=== PATIENT | male | born 1955 | race Caucasian/White ===

== ENCOUNTER 2016-09-18 14:47 | Emergency (ER) | payer MEDICARE, OTHER ==
[~2016-09-18] VITALS: Ht 167.6 cm; Wt 74.1 kg
[~2016-09-18 14:47] MED LIST: BP MED; FLUT1DIS5 IH; IBUP800T28 PO; LISI10TA2 PO
[2016-09-18 14:53] VITALS: BP 110/77; PULSE 124; RESP 36; O2SAT 96
--- NOTE | 2016-09-18 15:10 | ED.REPORT ---
HPI-Dyspnea / Wheezing Date of Service Sep 18, 2016 ED Provider: Leoncio Perla MD Patient is a 61 year old male who presents to the ED complaining of shortness of breath onset earlier this morning. He denies nausea, vomiting or chest pain. The patient reports that he has not been taking his medication or inhaler for the past month and has been using meth. Patient last used meth 4 days ago. He states that he would like to be started on his medication again. Nursing Notes Stated Complaint: SHORT OF BREATH-COPD Chief Complaint: Respiratory Distress Nursing Notes Reviewed: Yes Allergies: Coded Allergies: No Known Allergies (Verified Allergy, Unknown, 09/18/16) Scheduled Albuterol HFA (Proair HFA) 8.5 Gm Hfa.aer.ad 2-4 PUFFS INHALATION Q2H Fluticasone/Salmeterol (Advair 500-50 Diskus) 1 Each Disk.w.dev 1 PUFF IH BID Lisinopril (Lisinopril) 10 Mg Tablet 10 MG PO DAILY Prednisone (Deltasone) 20 Mg Tablet 40 MG PO DAILY Scheduled PRN Ibuprofen (Ibuprofen) 800 Mg Tablet 800 MG PO QID PRN PRN For Pain Miscellaneous Medications ([Bp Med]) General Time Seen by MD: 15:09 Chief Complaint Shortness of breath Hx Obtained From: Patient Arrived By: Walk-in Sudden in Onset?: Yes Onset Occurred: 1 - 4 hours ago Symptom Duration: Since onset Location: : None Severity: Current: No pain currently Recent Healthcare: No recent hospitalization, Recent doctor visit Similar Sx Previous: Yes Past Medical History Past Medical History Reports: COPD, Hypertension Smoking History Former Smoker Social History Drug Use: Meth Ambulatory Status Independent Review of Systems Constitutional: Denies: Chills, Fever Respiratory: Reports: Non-productive cough, Shortness of breath Cardiovascular: Denies: Chest pain Skin: Denies Itching, Denies Rash Complete sys rev & neg: except as marked. GI: Denies: Nausea, Vomiting Physical Exam Initial Vital Signs Vital Signs (First) Date Time Temp Pulse Resp B/P Pulse Ox O2 Delivery O2 Flow Rate FiO2 09/18/16 14:53 37.1 124 36 110/77 96 09/18/16 17:33 Room Air Initial VS: Reviewed General/Constitutional: Awake, Alert missing most of his teeth Neck: Atraumatic, Supple Respiratory / Chest: Atraumatic, No rales scattered wheezes throughout dyspneic Cardiovascular: Regular rhythm, Heart sounds NL, No murmurs Heart Rate / Rhythm: Positive: Tachycardia Lower Extremity / Pelvis / MS: Atraumatic, Full range of motion, No edema Skin: Atraumatic, Color NL, No rash, Warm, Dry Neurologic: Oriented X3, Speech NL, No motor deficits, No sensory deficits Head / Eyes: Atraumatic, Normocephalic, PERRL, EOMI Upper Extremity / MS: Atraumatic, Full range of motion Psychiatric: Affect NL, Mood NL Interpretation & Diagnostics Lab Results Interpretation Result Diagram: 09/18/16 1600 09/18/16 1600 Test 09/18/16 16:00 White Blood Count 8.8th/mm3 (3.8-10.1) Red Blood Count 5.74mil/mm3 (4.40-5.80) Hemoglobin 16.0g/dL (13.8-17.2) Hematocrit 46.4% (41.0-50.0) Mean Corpuscular Volume 80.8fL (81-100) Mean Corpuscular Hemoglobin 27.9pg (27.0-35.0) Mean Corpuscular Hemoglobin Concent 34.5% (32.0-37.0) Red Cell Distribution Width 13.4% (12.3-15.4) Platelet Count 395bil/L (150-400) Neutrophils (%) (Auto) 73.7% (40-74) Lymphocytes (%) (Auto) 14.1% (14-46) Monocytes (%) (Auto) 8.2% (4-12) Eosinophils (%) (Auto) 3.8% (0-5) Basophils (%) (Auto) 0.2% (0-3) Prothrombin Time 10.1sec (8.1-12.5) Prothromb Time International Ratio 0.95ratio Sodium Level 139mEq/L (134-144) Potassium Level 4.0mEq/L (3.5-5.2) Chloride Level 103mEq/L (97-108) Carbon Dioxide Level 19mmol/L (18-29) Blood Urea Nitrogen 9mg/dL (6-24) Creatinine 1.52mg/dL (0.76-1.27) Estimat Glomerular Filtration Rate 50mL/min (>59) Glucose Level 99mg/dL (60-99) Lactic Acid Level 1.6mmol/L (0.4-2.0) Calcium Level 9.7mg/dL (8.5-10.1) Total Bilirubin 0.3mg/dL (0.0-1.2) Aspartate Amino Transf (AST/SGOT) 19U/L (0-50) Alanine Aminotransferase (ALT/SGPT) 15U/L (0-44) Alkaline Phosphatase 113U/L (25-160) Troponin T < 0.010ug/L (0.0-0.011) Pro-B-Type Natriuretic Peptide 63.43pg/mL (0-210) Total Protein 7.0g/dL (6.4-8.4) Albumin 3.7g/dL (3.4-5.0) ECG Interpretation ECG Interpretation: sinus tachycardia, rate 107 Time: 15:36 Interpreted by: ED physician X-Ray Chest Interpretation Chest Xray Interpretation: IMPRESSION: No acute disease, source of dyspnea is not seen. Dictated by: Tho Calle M.D. on 09/18/2016 at 16:27 Approved by: Tho Calle M.D. on 09/18/2016 at 16:28 View: Portable, 1 view Interpretation / Wet Read by: Interpret - Radiologist Re-Eval/Medical Decision Re-Evaluation/Progress : Time of Eval: 18:57 Patient Status: Condition improved Re-Evaluation/Progress Note: Discussed results and plan for discharge. Patient understands and agrees to the plan. All questions were addressed. Counseled Regarding: Diagnosis, Lab results, Need for follow-up, When/why to return to ED Discharge & Departure Impression: Primary Impression: COPD exacerbation Disposition: Home Discharge Condition All VS Reviewed: Yes Condition: Stable Patient Instructions: Chronic Obstructive Pulmonary Disease (ED) Additional Instructions: Your shortness of breath is related to the emphysema/COPD that you have. Take the prednisone 40 mg daily for 5 days. Use the rescue inhaler 2-4 puffs every 2 hours as needed for shortness of breath. Return to the emergency department if you are feeling worse. Otherwise, follow up next week at the clinic. Referrals: Brandin Abarca DO (PCP) [facility] Scribe Attestation Portions of this note were transcribed by Karla Isebll. Dr. Pan Tabares personally performed the history, physical exam and medical decision-making; I reviewed and confirmed the accuracy of the information in the transcribed note. Signed by: Johanny Khan, 09/18/16 copies to: Brandin Abarca DO; [facility] Leoncio Perla MD Sep 18, 2016 15:10 Krissy Isbell Sep 18, 2016 15:29
[2016-09-18] MEDS ORDERED: Albuterol-Ipratropium 3 mL Inhalation Solution NEB ONE (15:25)
[2016-09-18] MEDS ORDERED: Albuterol 2.5 mg/3 mL Inhalation Solution NEB ONE (15:25)
[2016-09-18 16:13] LABS: BASOPHILS % (AUTO) 0.2 % (0-3); EOSINOPHILS % (AUTO) 3.8 % (0-5); MONOCYTES % (AUTO) 8.2 % (4-12); Mean Corpuscular Hemoglobin 27.9 pg (27.0-35.0); Mean Corpuscular Volume 80.8 fL (81-100); NEUTROPHILS % (AUTO) 73.7 % (40-74); Platelet Count 395 bil/L (150-400)
--- NOTE | 2016-09-18 16:30 | DRSVH ---
PROCEDURE: X-RAY CHEST ONE VIEW, PORTABLE ([id number]) INDICATIONS: dyspnea TECHNIQUE: One view of the chest was acquired. COMPARISON: [facility], CR, CHEST 2VW, 03/14/2013, 12:35. [facility], CR, CH EST 2VW, 03/06/2013, 13:40. FINDINGS: Surgical changes and devices: None. Lungs and pleura: No pleural effusions or pneumothorax. Lungs are clear. Mediastinum: Mediastinal contours appear normal. Heart size is normal. Bones and chest wall: No suspicious bony lesions. Overlying soft tissues appear unremarkable. IMPRESSION: No acute disease, source of dyspnea is not seen. Dictated by: Tho Calle M.D. on 09/18/2016 at 16:27 Approved by: Tho Calle M.D. on 09/18/2016 at 16:28
[2016-09-18 16:39] LABS: INR 0.95 ratio
[2016-09-18 16:51] LABS: TROPONIN T < 0.010 ug/L (0.0-0.011)
[2016-09-18 17:33] VITALS: BP 112/66; PULSE 104; RESP 24; O2SAT 94
[2016-09-18] MEDS ORDERED: MethylprednisoLONE Sodium Succinate 62.5 mg/mL 2 mL Inj IVPUSH ONE (17:40)
[2016-09-18] MEDS ORDERED: ALBU8.5H2 INHALATION (19:01)
[2016-09-18] MEDS ORDERED: PRED-508 PO (19:01)
[2016-09-18 19:26] VITALS: BP 130/64; PULSE 91; RESP 23; O2SAT 92
[2016-09-21] MEDS ORDERED: CITA20TA11 PO (13:49)
[2016-09-21] MEDS ORDERED: PRE20 PO (13:49)
[2016-09-21] MEDS ORDERED: AMLO5TAB2 PO (13:49)
[2016-09-21] MEDS ORDERED: TRAZ-118 PO (13:49)
[2016-09-21] MEDS ORDERED: HYG25 PO (13:49)
[2016-09-21] MEDS ORDERED: ATOR20TA65 PO (13:49)
== END 2016-09-18 19:28 | disposition home or self-care (01) ==
LOC: SED 14:47
DX: J44.1 Chronic obstructive pulmonary disease with (acute) exacerbation (principal); I10 Essential (primary) hypertension; Z87.891 Personal history of nicotine dependence
CPT/HCPCS: 36415; 71010; 80053; 83605; 83880; 84484; 85025; 85610; 93005; 94644; 96374; 99285; J2930; J7613; J7620

== ENCOUNTER 2016-10-08 19:08 | Inpatient (IN) | payer MEDICARE, MEDICAID ==
[~2016-10-08] VITALS: Ht 167.6 cm; Wt 74.4 kg
[2016-10-08 19:07] VITALS: BP 94/62; PULSE 74; RESP 18; O2SAT 100
[~2016-10-08 19:08] MED LIST changes: +ALBU8.5H2 INHALATION; +AMLO5TAB2 PO; +ATOR20TA65 PO; +CITA20TA11 PO; +DIPH25CA6 PO; +HYG25 PO; +IPRA3AMP IH; +IPRA3AMP NEB; +LISI10TA PO; -LISI10TA2 PO; +PRED-508 PO; +TRAZ-118 PO
--- NOTE | 2016-10-08 19:29 | ED.REPORT ---
HPI-NVD Date of Service Oct 08, 2016 ED Provider: Brayan Mckeon MD Pt is a 61 year old male with a history of HTN and COPD who presents to the ED via EMS complaining of vomiting onset 4 days ago. He c/o associated lightheadedness, nausea, and diarrhea (x2). He denies chest pain, fever, and abdominal pain. The pt denies exposure to anyone with recent illness. Pt has not taken medication to relieve his nausea. Pt presented to the ED on 09/21/16 complaining of SOB and he was admitted to [facility] for acute exacerbation of COPD. Nursing Notes Stated Complaint: NAUSEA,VOMITING,DIARRHEA,LOW BP Chief Complaint: General Complaint Nursing Notes Reviewed: Yes (SocialSign.in, meds not reconicled) Allergies: Coded Allergies: No Known Allergies (Verified Allergy, Unknown, 10/08/16) Scheduled Amlodipine (Amlodipine) 5 Mg Tablet 5 MG PO DAILY Atorvastatin Calcium (Atorvastatin Calcium) 20 Mg Tablet 20 MG PO HS Chlorthalidone (Chlorthalidone) 25 Mg Tablet 25 MG PO DAILY Citalopram (Citalopram) 20 Mg Tablet 20 MG PO DAILY Fluticasone/Salmeterol (Advair Hfa 115-21 Mcg Inhaler) 12 Gm Hfa.aer.ad 2 PUFFS INH BID Ipratropium/Albuterol Sulfate (Iprat-Albut 0.5-3(2.5) mg/3 mL Inhalant Soln) 3 Ml Ampul.neb 3 ML IH Q6 Ipratropium/Albuterol Sulfate (Iprat-Albut 0.5-3(2.5) mg/3 mL Inhalant Soln) 3 Ml Ampul.neb 3 ML NEB QID Lisinopril (Lisinopril) 10 Mg Tablet 10 MG PO DAILY Prednisone (PredniSONE) 20 Mg Tablet 40 MG PO DAILY Trazodone (Trazodone) 100 Mg Tablet 200 MG PO HS Scheduled PRN Albuterol Sulfate (Ventolin HFA Inhaler) 200 Puff/18 Gm Inhaler 2 PUFFS INH Q4- 6H PRN PRN For Shortness of Breath Ibuprofen (Ibuprofen) 800 Mg Tablet 800 MG PO QID PRN PRN For Pain diphenhydrAMINE HCl (Benadryl) 25 Mg Capsule 25 MG PO Q6H PRN PRN For Itching Miscellaneous Medications ([Bp Med]) General Time Seen by MD: 19:09 Chief Complaint Vomiting Hx Obtained From: Patient, EMS Arrived By: Ambulance Onset Occurred: 4 days ago Symptom Duration: Since onset Location: : No pain Severity: Current: No pain currently Recent Healthcare: Recent doctor visit, Recent hospitalization Similar Sx Previous: No Past Medical History Past Medical History Notes: Admitted for COPD exacerbation, treated with steroids 2 weeks ago Past Medical History hypertriglyceridemia insomnia Reports: COPD, Hypertension Reports: Depression Past Surgical History L hand surg dog bite R heel repair Smoking History Former Smoker Social History Alcohol Use: Denies alcohol use Drug Use: Meth Ambulatory Status Independent Review of Systems Constitutional: Denies: Fever GI: Reports: Diarrhea, Nausea, Vomiting, Denies: Abdominal pain Neurologic: Reports: Lightheaded Complete sys rev & neg: except as marked. Cardiovascular: Denies: Chest pain Physical Exam Initial Vital Signs Vital Signs (First) Date Time Temp Pulse Resp B/P Pulse Ox O2 Delivery O2 Flow Rate FiO2 10/08/16 19:07 36.4 74 18 94/62 100 Room Air Initial VS: Reviewed, Vital signs abnormal Neck: Supple, Full range of motion Extremities: Vascular intact, Neuro intact Skin: Warm, Dry, No cyanosis Neurologic: Alert, Oriented, Nonfocal Psychiatric: Mood/affect normal, Behavior normal General/Constitutional: Awake, Alert, No acute distress Chronically ill appearing. Fatigured. Answering questions. Abdomen: Atraumatic, Soft Mouth: Positive: Mucous membranes dry Respiratory / Chest: Atraumatic, Breath sounds = bilat Mildly bronchospastic. Cardiovascular: Regular rhythm, Heart sounds NL Heart Rate / Rhythm: Positive: Tachycardia (low grade) No edema Head / Eyes: Atraumatic, Normocephalic Eye slightly sunken Interpretation & Diagnostics Lab Results Interpretation Result Diagram: 10/08/16191410/08/161914 Test 10/08/16 19:15 10/08/16 19:25 White Blood Count 9.4th/mm3 (3.8-10.1) Red Blood Count 5.53mil/mm3 (4.40-5.80) Hemoglobin 15.3g/dL (13.8-17.2) Hematocrit 45.1% (41.0-50.0) Mean Corpuscular Volume 81.6fL (81-100) Mean Corpuscular Hemoglobin 27.7pg (27.0-35.0) Mean Corpuscular Hemoglobin Concent 33.9% (32.0-37.0) Red Cell Distribution Width 13.8% (12.3-15.4) Platelet Count 251bil/L (150-400) Neutrophils (%) (Auto) 65.9% (40-74) Lymphocytes (%) (Auto) 23.9% (14-46) Monocytes (%) (Auto) 8.5% (4-12) Eosinophils (%) (Auto) 1.2% (0-5) Basophils (%) (Auto) 0.2% (0-3) Sodium Level 133mEq/L (134-144) Potassium Level 4.2mEq/L (3.5-5.2) Chloride Level 95mEq/L (97-108) Carbon Dioxide Level 20mmol/L (18-29) Blood Urea Nitrogen 57mg/dL (6-24) Creatinine 2.78mg/dL (0.76-1.27) Estimat Glomerular Filtration Rate 25mL/min (>59) Glucose Level 117mg/dL (60-99) Calcium Level 9.0mg/dL (8.5-10.1) Total Bilirubin 0.4mg/dL (0.0-1.2) Aspartate Amino Transf (AST/SGOT) 16U/L (0-50) Alanine Aminotransferase (ALT/SGPT) 41U/L (0-44) Alkaline Phosphatase 86U/L (25-160) Troponin T < 0.010ug/L (0.0-0.011) Total Protein 6.2g/dL (6.4-8.4) Albumin 3.3g/dL (3.4-5.0) Hold Purple Top Tube Received (Received) Hold Blue Top Tube Received (Received) Lactic Acid Level 1.5mmol/L (0.4-2.0) Hold Red Top Tube Received (Received) Hold Dale Top Tube Received (Received) Lab Results Interpretation: CBC normal CMP acute kidney injury compared with labs 2 weeks ago Lactic acid normal ECG Interpretation ECG Interpretation: Sinus rhythm with a rate of 66 Time: 19:37 Interpreted by: ED physician Re-Eval/Medical Decision Med Decision/Clinical Course This is a 61-year-old male who presents with near nausea and vomiting for the past 3-4 days. He has not been able to take by mouth, he has had no fevers, no real abdominal pain, he has had 2 loose stools today but no real diarrhea-with urgent care is found to be hypotensive in the 70s, and was transported here by EMS. He denies any recent ill contacts (although was hospitalized w/COPD in recent weeks). He describes profound orthostasis. On arrival patient is mentating, but appears profoundly dehydrated. His abdomen is entirely soft and nontender no signs of acute surgical abdomen or peritonitis. He is not febrile. He does have some mild bronchospasm and reports he has not been able to use his nebs with all of his nausea. She received aggressive IV fluids and his blood pressure improved. Given his recent use of steroids and affect is still bronchospastic received Solu-Medrol. He is able take his nebulizers. Labs reveal no leukocytosis or elevated lactic markers or intra-abdominal catastrophe, I am not finding indications for need for emergent imaging. However the patient's labs are notable for acute kidney injury likely secondary to profound dehydration, I recommend admission for further hydration and monitoring. Source of Hx: Old records Re-Evaluation/Progress #1: Time of Eval: 19:37 Patient Status: Condition unchanged Re-Evaluation/Progress Note: Pt rechecked. Further examined pt. All questions addressed. Re-Evaluation/Progress #2: Time of Eval: 20:24 Re-Evaluation/Progress Note: Pt rechecked. Informed pt of plan for admission. Pt understands and agrees with plan for admission. All questions addressed. Consultation : Referral / Consult Name: Terri Fowler DO Consulted With: Hospitalist Call Returned at: 21:36 Traffic Safety Administrator: Will see patient, Agrees with eval, Agrees with plan, Accepts admit Differential Diagnosis: Positive: Dehydration, Negative: Bowel obstruction, Drug overdose, Drug-med reaction, Dacia-Thomas syndrome, Migraine headache, Counseled Regarding: Diagnosis, Lab results, Need for admission Discharge & Departure Impression: Primary Impression: Vomiting Vomiting type: unspecified Vomiting Intractability: unspecified Nausea presence: unspecified Qualified Code: R11.10 - Vomiting, unspecified Additional Impressions: Severe dehydration Hypotension Hypotension type: unspecified hypotension type Qualified Code: I95.9 - Hypotension, unspecified Acute kidney injury COPD (chronic obstructive pulmonary disease) COPD type: unspecified COPD Qualified Code: J44.9 - Chronic obstructive pulmonary disease, unspecified Disposition: ADMITTED TO HOSPITAL Discharge Condition All VS Reviewed: Yes Condition: Stable Referrals: [facility] (PCP) Crit Care Except Billable Proc Time Spent: 30-74 minutes Services Performed: Patient management by me, Time spent at bedside, Reviewing test results, Reviewing imaging, Discussing patient care, Documentation in record, Time with fam/surrogate, Other Scribe Attestation Portions of this note were transcribed by India Myers. I, Dr. Mckeon personally performed the history, physical exam and medical decision-making; I reviewed and confirmed the accuracy of the information in the transcribed note. Signed by: Johanny Chris, 10/08/16. copies to: [facility] Brayan Mckeon MD Oct 08, 2016 19:29 India Whitaker Oct 08, 2016 19:35
[2016-10-08] MEDS ORDERED: 0.9% Sodium Chloride 1,000 ML IV ONE ×2 (19:35)
[2016-10-08] MEDS ORDERED: Ondansetron 2 mg/mL 2 mL Inj IVPUSH ONE (19:35)
[2016-10-08] MEDS ORDERED: MethylprednisoLONE Sodium Succinate 62.5 mg/mL 2 mL Inj IVPUSH ONE (19:40)
[2016-10-08] MEDS ORDERED: Albuterol 2.5 mg/3 mL Inhalation Solution NEB ONE (19:40)
[2016-10-08 19:49] LABS: Mean Corpuscular Hemoglobin 27.7 pg (27.0-35.0); Mean Corpuscular Volume 81.6 fL (81-100)
[2016-10-08 19:50] LABS: BASOPHILS % (AUTO) 0.2 % (0-3); EOSINOPHILS % (AUTO) 1.2 % (0-5); MONOCYTES % (AUTO) 8.5 % (4-12); NEUTROPHILS % (AUTO) 65.9 % (40-74); Platelet Count 251 bil/L (150-400)
[2016-10-08 19:51] LABS: TROPONIN T < 0.010 ug/L (0.0-0.011)
[2016-10-08 20:02] VITALS: PULSE 68; RESP 14; O2SAT 92
[2016-10-08 20:25] VITALS: BP 103/59; PULSE 71; RESP 18; O2SAT 98
[2016-10-08] MEDS ORDERED: ALBU18HF INH (21:10)
[2016-10-08] MEDS ORDERED: FLUT12AE4 INH (21:10)
[2016-10-08] MEDS ORDERED: PRE20 PO (21:10)
[2016-10-08] MEDS ORDERED: Ondansetron 2 mg/mL 2 mL Inj IVPUSH PRN (22:00)
[2016-10-08] MEDS ORDERED: Polyethylene Glycol (PEG) 17 Gm Powder PO PRN (22:00)
[2016-10-08] MEDS ORDERED: diphenhydrAMINE 25 mg Capsule PO PRN (22:05)
[2016-10-08 22:21] VITALS: BP 102/68; PULSE 85; RESP 13; O2SAT 99
--- NOTE | 2016-10-08 22:26 | PCM.HPMED ---
Subjective Date of Service Oct 08, 2016 Primary Provider: Admitting Physician: Terri Fowler DO Primary Care Physician: Clinic,[facility] Residency Attending Physician: Terri Fowler DO Chief Complaint: Nausea and vomiting History of Present Illness: Patient is a 61-year-old gentleman with history of hypertension, COPD who presents to the hospital after 4 days of worsening nausea vomiting. He states he has not been able to keep anything down and has had loose stools previously and "wet stools earlier this morning." He has associated lightheadedness, some dizziness, trouble catching his breath, he has not been able to use his COPD medication secondary to the nausea and vomiting. He denies any fevers, chills, abdominal pain, chest pain, rashes, dysuria, or change in frequency. He has had a headache for 1 day. He was previously admitted to the hospital for COPD exacerbation and discharged September 26. He denies any recent contacts with individuals with similar symptoms, no recent camping or drinking from unknown water source, no additional contact to unknown pets or animals, he lives in a private residence no others with similar symptoms. Has not been traveling, has not eaten any foods out of the ordinary or questionable safety. Denies hematochezia or hematemesis or melena. He reports having burning when he swallows any type of food or liquid for the past 2 days. On presentation: 36.4, 74, 18, 94/62. Review of outpatient records show that he is typically hypertensive with systolic greater than 150. Hematology's were unremarkable, sodium 133, chloride 95, BUN 57, creatinine 2.78 , glucose 117, lactic acid 1.5, troponin negative, liver function normal. EKG: Rate 66, sinus, normal axis, no signs of acute ischemia or infarct, no IVCD , NV 134, QTC 375. Patient was admitted to the hospital for prerenal azotemia, hypotension, fluid repletion. Review of Systems: A comprehensive review of systems was conducted with the patient and found to be negative except as above in the history of presenting illness. Allergies Coded Allergies: No Known Allergies (Verified Allergy, Unknown, 10/08/16) Home Medications Scheduled Amlodipine (Amlodipine) 5 Mg Tablet 5 MG PO DAILY Atorvastatin Calcium (Atorvastatin Calcium) 20 Mg Tablet 20 MG PO HS Chlorthalidone (Chlorthalidone) 25 Mg Tablet 25 MG PO DAILY Citalopram (Citalopram) 20 Mg Tablet 20 MG PO DAILY Fluticasone/Salmeterol (Advair Hfa 115-21 Mcg Inhaler) 12 Gm Hfa.aer.ad 2 PUFFS INH BID Ipratropium/Albuterol Sulfate (Iprat-Albut 0.5-3(2.5) mg/3 mL Inhalant Soln) 3 Ml Ampul.neb 3 ML IH Q6 Ipratropium/Albuterol Sulfate (Iprat-Albut 0.5-3(2.5) mg/3 mL Inhalant Soln) 3 Ml Ampul.neb 3 ML NEB QID Lisinopril (Lisinopril) 10 Mg Tablet 10 MG PO DAILY Prednisone (PredniSONE) 20 Mg Tablet 40 MG PO DAILY Trazodone (Trazodone) 100 Mg Tablet 200 MG PO HS Scheduled PRN Albuterol Sulfate (Ventolin HFA Inhaler) 200 Puff/18 Gm Inhaler 2 PUFFS INH Q4- 6H PRN PRN For Shortness of Breath Ibuprofen (Ibuprofen) 800 Mg Tablet 800 MG PO QID PRN PRN For Pain diphenhydrAMINE HCl (Benadryl) 25 Mg Capsule 25 MG PO Q6H PRN PRN For Itching PMH Hypertriglyceridemia Insomnia COPD Hypertension Depression Surgical History Left hand surgery Dog bite repair to right heel. Family History Mother committed suicide in 1972 Father has passed, had Parkinson's disease. Social History Occupation: disability Hx Alcohol Use: No (Denies) Hx Substance Use: Yes (methamphetamines) Hx Tobacco Use: Yes Smoking Status: Former Smoker Exam Vital Signs Vital Sign - Last Date Time Temp Pulse Resp B/P Pulse Ox O2 Delivery O2 Flow Rate FiO2 10/08/16 20:25 71 18 103/59 98 Room Air 10/08/16 19:07 36.4 Exam General: Laying in bed, no apparent distress from baseline which I have seen him in the past. HEENT: Normocephalic, atraumatic, EOMI grossly, neck supple without lymphadenopathy, poor dentition, conjunctiva are pink Cardiovascular: Regular rate and rhythm, no clicks murmurs rubs, peripheral pulses 2/4 equal bilaterally Pulmonary: Clear to auscultation bilaterally, no W/R/R. Abdominal: Soft to palpation, bowel sounds present 4, no hepatosplenomegaly. Negative rebound. Extremities: No edema appreciated. No tenderness, asymmetry. Neuro: Neurologically grossly intact, strength is equal bilaterally upper and lower extremities. MSK: Able to move extremities on their own volition, strength 5 out of 5 equal bilaterally to upper and lower extremities. Psychiatric: Patient's mood and affect are congruent to the situation, A&O 4, he has chronic writhing of his jaw which appears to be at baseline and smacking of his tongue and lips. Lymph: no cervical or supraclavicular lymphadenopathy Skin: no rashes or ecchymosis Lab and Diagnostics Result Diagram: 10/08/16191410/08/161914 12-lead ECG EKG: Rate 66, sinus, normal axis, no signs of acute ischemia or infarct, no IVCD , NV 134, QTC 375. Assessment & Plan 61-year-old gentleman with history of COPD, hypertension, insomnia and depression recent hospitalization for COPD exacerbation, presented with 4 days of nausea and vomiting found to be hypotensive, have acute kidney injury, and low electrolytes. Admitted to observation for continued fluid replenishment, lectures slight replenishment, and symptom management. Acute nausea and vomiting, 4 days, present on admission, improved The absence of elevated white blood count, likely sources of exposure, most likely viral gastritis possible developing gastroenteritis Patient received antiemetics, IV saline, and regained his appetite. Ondansetron 4-8 mg every 4 hours as needed Continue IV normal saline at 125 mL per hour. He received 2 L in the emergency department, improved tachycardia, blood pressure. Advance diet as tolerated Acute hypotension, present on admission, improved Urgent care blood pressure was in the 70s, in the 80s on presentation to the ER , after receiving fluid resuscitation is now in the low 100s Continue IV fluids as above Every 4 hour vital signs Acute kidney injury, present on admission, active Serum creatinine 2.78, does not have history of chronic renal failure [place] to be prerenal in nature given 20.5 BUN to creatinine ratio, consistent with history of unable to keep down fluids IV fluids as above Hold for toxic medications such as ibuprofen Reassess with a.m. labs Acute hyponatremia, present on admission, active Sodium 133 on presentation Continue IV fluids as above Reassess with I am labs Acute headache, present on admission, active States he has had it for 1 day, frontal bilateral 650 acetaminophen now Acute odynophagia, present on admission, active 2 days of burning with swallowing any substance, may represent viral pharyngitis , or developing GERD. Trial of famotidine 20 mg twice a day Chronic COPD, present on admission, stable Not in acute exacerbation Continue home medications of albuterol inhaler when necessary Continue duo nebs 4 times a day Chronic hypertension, present on admission, stable Hold home antihypertensives Chronic anxiety with depression, present on admission, active Continue citalopram and trazodone from home Patient is admitted for observation with anticipated length of stay less than 2 minutes, based on diagnosis, treatment plan, and anticipated risk of adverse events GI prophylaxis not indicated DVT prophylaxis with subcutaneous heparin Pain management, acetaminophen as needed. CODE STATUS: Full code, discussed with patient bedside. Pain Evaluation: Adequate Pain Control GI Prophylaxis: H2 bharathi VTE Prophylaxis: Sub-Q Heparin (Unfractionated) Resuscitation Status: CPR: Attempt Resuscitation Attending Statement The patient was seen and examined together with house staff on 10/08/2016 and I agree with the history, exam and plan as outlined in the note above. Jesse Hidalgo DO Oct 08, 2016 22:26 Terri Fowler DO Oct 09, 2016 04:31
--- NOTE | 2016-10-08 22:40 | NUR ---
Arrived from ER Pt arrived via gurney. Awake and oriented x3. Saline lock. Oriented to room and use of call light. Patient able to provide history during admissions. Addendum: 10/09/16 at 0011 by LESLIE TUBBS RN Unable to reconcile pt's home meds. He does not have a list and does not remember them well. Will relay to am to update from pt's preferred pharmacy.
[2016-10-08 22:52] VITALS: BP 96/62; PULSE 86; RESP 18; O2SAT 100
[2016-10-08] MEDS: 0.9% Sodium Chloride 1,000 ML IV SCH (23:00)
[2016-10-08] MEDS ORDERED: Famotidine Inj 20 MG in IV Premix 1 EACH IV SCH (23:36)
[2016-10-08] MEDS: Heparin 5,000 Unit/mL Inj SUBQ SCH (23:44)
[2016-10-08 23:48] VITALS: BP 124/77; PULSE 100; O2SAT 100
[2016-10-09] VITALS (10 sets, daily range): BP systolic 100–122; BP diastolic 61–75; PULSE 74–103; RESP 16–22; O2SAT 94–99
[2016-10-09] MEDS: Albuterol-Ipratropium 3 mL Inhalation Solution NEB SCH ×5 (02:30→22:55)
[2016-10-09 02:36] LABS: BASOPHILS % (AUTO) 0.2 % (0-3); EOSINOPHILS % (AUTO) 0 % (0-5); MONOCYTES % (AUTO) 1.3 % (4-12); Mean Corpuscular Hemoglobin 27.8 pg (27.0-35.0); Mean Corpuscular Volume 81.6 fL (81-100); NEUTROPHILS % (AUTO) 90.1 % (40-74); Platelet Count 236 bil/L (150-400)
[2016-10-09 02:57] LABS: Magnesium 2.1 mg/dL (1.6-2.6)
--- NOTE | 2016-10-09 04:33 | NUR ---
Telemetry Alert and oriented x3. VSS. He denies any pain/discomfort at this time. Voiding per urinal. No c/o nausea or vomiting. Pt tolerated some crackers and liquids tonight. Telemetry SR in 70s.
[2016-10-09] MEDS: 0.9% Sodium Chloride 1,000 ML IV SCH ×3 (06:05→16:51)
[2016-10-09] MEDS ORDERED: Albuterol-Ipratropium 3 mL Inhalation Solution NEB SCH (06:30)
[2016-10-09] MEDS: Alum-Mag Hydrox-Simeth 30 mL Suspension PO PRN ×3 (06:45→17:03)
--- NOTE | 2016-10-09 08:03 | PCM.PNMED ---
Subjective Date of Service Oct 09, 2016 Subjective He states he has high anxiety. His nausea is much improved. He is going to try to eat some breakfast today. No emesis overnight. No diarrhea. Some intermittent abdominal pain. He denies headache at this time. No hematemesis. No chest pain, cough or shortness of breath. No overnight events noted. Exam Vital Signs Vital Sign - Last Date Time Temp Pulse Resp B/P Pulse Ox O2 Delivery O2 Flow Rate FiO2 10/09/16 04:26 98 18 94 Room Air 10/09/16 03:49 36.6 100/61 Intake and Output 10/08/16 10/08/16 10/09/16 Cumulative From/Thru 15:00 23:00 07:00 10/08/16 19:07 - 10/09/16 06:48 Intake Total 2000 ml 1293 ml 3293 ml Output Total 840 ml 840 ml Balance 2000 ml 453 ml 2453 ml Intake Oral 400 ml 400 ml IV Total 2000 ml 893 ml 2893 ml Output Urine Total 840 ml 840 ml Exam Alert and oriented -3, no distress. Fluent speech Anicteric sclera. Lungs are clear with normal rate and effort Heart is regular without murmur gallop or rub Abdomen soft nontender, flat Extremities are free of edema. Skin is free of rash or lesions. IVs and Medications Medications Reviewed: Medications were reviewed in detail Lab and Diagnostics Result Diagram: 10/09/1622410/09/16224 12-lead ECG EKG: Rate 66, sinus, normal axis, no signs of acute ischemia or infarct, no IVCD , GA 134, QTC 375. Assessment & Plan 61-year-old gentleman with history of COPD, hypertension, insomnia and depression recent hospitalization for COPD exacerbation, presented with 4 days of nausea and vomiting found to be hypotensive, have acute kidney injury, and low electrolytes. Admitted to observation for continued fluid replenishment, lectures slight replenishment, and symptom management. #. Acute nausea and vomiting, 4 days, present on admission, improved The absence of elevated white blood count, likely sources of exposure, most likely viral gastritis possible developing gastroenteritis Patient received antiemetics, IV saline, and regained his appetite. Ondansetron 4-8 mg every 4 hours as needed Continue IV normal saline at 125 mL per hour. He received 2 L in the emergency department, improved tachycardia, blood pressure. Advance diet as tolerated Further plans contingent on how he does with his diet. #. Acute hypotension, present on admission, resolved. Urgent care blood pressure was in the 70s, in the 80s on presentation to the ER , after receiving fluid resuscitation is now in the low 100s Continue IV fluids as above Every 4 hour vital signs #. Volume Depletion, present on admission, improving. Continue IV fluids. Acute kidney injury, present on admission, active and improving Serum creatinine 2.78, does not have history of chronic renal failure [place] to be prerenal in nature given 20.5 BUN to creatinine ratio, consistent with history of unable to keep down fluids IV fluids as above Hold for toxic medications such as ibuprofen Reassess with a.m. labs Acute hypovolemic hyponatremia, present on admission, active and improving Sodium 133 on presentation Continue IV fluids as above Saline at 125 an hour Acute headache, present on admission, resolved States he has had it for 1 day, frontal bilateral 650 acetaminophen now Acute odynophagia, present on admission, active and improving 2 days of burning with swallowing any substance, may represent viral pharyngitis , or developing GERD. Trial of famotidine 20 mg twice a day Chronic COPD, present on admission, stable Not in acute exacerbation Continue home medications of albuterol inhaler when necessary Continue duo nebs 4 times a day Chronic hypertension, present on admission, stable Hold home antihypertensives Chronic anxiety with depression, present on admission, active and stable Continue citalopram and trazodone from home Patient is admitted for observation with anticipated length of stay less than 2 minutes, based on diagnosis, treatment plan, and anticipated risk of adverse events GI prophylaxis not indicated DVT prophylaxis with subcutaneous heparin Pain management, acetaminophen as needed. CODE STATUS: Full code, discussed with patient bedside. GI Prophylaxis: H2 bharathi VTE Prophylaxis: Sub-Q Heparin (Unfractionated) Resuscitation Status: CPR: Attempt Resuscitation Cb Alonso MD Oct 09, 2016 08:03
[2016-10-09] MEDS: Heparin 5,000 Unit/mL Inj SUBQ SCH ×2 (08:30→16:54)
[2016-10-09] MEDS: Famotidine Inj 20 MG in IV Premix 1 EACH IV SCH ×2 (09:30→20:59)
[2016-10-09] MEDS: Fluticasone-Salmererol 250-50 Inhaler INHALATION SCH ×2 (11:06→21:10)
--- NOTE | 2016-10-09 15:58 | NUR ---
Inpatient status effective today, SAFIA signed.
[2016-10-09] MEDS ORDERED: Albuterol 2.5 mg/3 mL Inhalation Solution NEB PRN (22:11)
[2016-10-10 00:10] VITALS: BP 91/60; PULSE 94; RESP 20; O2SAT 97
[2016-10-10] MEDS: Heparin 5,000 Unit/mL Inj SUBQ SCH ×2 (00:14→08:06)
[2016-10-10] MEDS: 0.9% Sodium Chloride 1,000 ML IV SCH (01:13)
[2016-10-10 03:48] VITALS: BP 115/70; PULSE 74; RESP 20; O2SAT 96
[2016-10-10 07:40] VITALS: BP 149/87; PULSE 87; RESP 17; O2SAT 97
[2016-10-10] MEDS: Fluticasone-Salmererol 250-50 Inhaler INHALATION SCH (08:06)
[2016-10-10] MEDS: Famotidine Inj 20 MG in IV Premix 1 EACH IV SCH (08:06)
[2016-10-10] MEDS: Albuterol-Ipratropium 3 mL Inhalation Solution NEB SCH (12:08)
[2016-10-10 12:09] VITALS: PULSE 84; RESP 16; O2SAT 98
--- NOTE | 2016-10-10 12:09 | PCM.DIMED ---
Discharge Instructions Date of Service Oct 10, 2016 Dates of Hospitalization Oct 08, 2016 at 21:38 Discharge Diagnosis Discharge Diagnosis #. Acute nausea and vomiting, resolved. #. Acute hypotension, resolved. #. Volume Depletion, resolved. #. Acute kidney injury, resolved #. Acute hypovolemic hyponatremia, resolved. #. Acute headache, stable. #. Acute odynophagia, improved. #. Chronic COPD, stable. #. Essential hypertension, stable. #. Chronic anxiety with depression, stable. #. Intermittent methamphetamine use, not active Diet Discharge Diet: No restrictions Activity Discharge Activity: No restrictions Call your provider Call your provider for: Fever or Chills, Shortness of breath Patient Instructions Follow-up Provider: [facility] Follow-up with PCP in: 1 week Cb Alonso MD Oct 10, 2016 12:09
--- NOTE | 2016-10-10 12:20 | NUR ---
Discharge Pt D/cd home in stable condition. Reviewed MD follow up instructions as well as what to look for returns symptoms and coming back in. Meds reviewed with patient. No questions at this time. PIV x2 removed intact.
--- NOTE | 2016-10-10 15:30 | PCM.DC.MED ---
Discharge Summary Date of Service Oct 10, 2016 Dates of Hospitalization Date of Hospital Admission Oct 08, 2016 at 21:38 Date of Discharge: Oct 10, 2016 Providers: Admitting Physician: Terri Fowler DO Primary Care Physician: Clinic,[facility] Residency Attending Physician: Cb Alonso MD Diagnosis at Time of Discharge Diagnosis at Time of Discharge #. Acute nausea and vomiting, resolved. #. Acute hypotension, resolved. #. Volume Depletion, resolved. #. Acute kidney injury, resolved #. Acute hypovolemic hyponatremia, resolved. #. Acute headache, stable. #. Acute odynophagia, improved. #. Chronic COPD, stable. #. Essential hypertension, stable. #. Chronic anxiety with depression, stable. #. Intermittent methamphetamine use, not active Consultations None Procedures XRay, CTs & MRIs None ECG 12 Lead EKG: Rate 66, sinus, normal axis, no signs of acute ischemia or infarct, no IVCD , AR 134, QTC 375. Invasive Procedures None Brief History Patient is a 61-year-old gentleman with history of hypertension, COPD who presents to the hospital after 4 days of worsening nausea vomiting. He states he has not been able to keep anything down and has had loose stools previously and "wet stools earlier this morning." He has associated lightheadedness, some dizziness, trouble catching his breath, he has not been able to use his COPD medication secondary to the nausea and vomiting. He denies any fevers, chills, abdominal pain, chest pain, rashes, dysuria, or change in frequency. He has had a headache for 1 day. He was previously admitted to the hospital for COPD exacerbation and discharged September 26. He denies any recent contacts with individuals with similar symptoms, no recent camping or drinking from unknown water source, no additional contact to unknown pets or animals, he lives in a private residence no others with similar symptoms. Has not been traveling, has not eaten any foods out of the ordinary or questionable safety. Denies hematochezia or hematemesis or melena. He reports having burning when he swallows any type of food or liquid for the past 2 days. On presentation: 36.4, 74, 18, 94/62. Review of outpatient records show that he is typically hypertensive with systolic greater than 150. Hematology's were unremarkable, sodium 133, chloride 95, BUN 57, creatinine 2.78 , glucose 117, lactic acid 1.5, troponin negative, liver function normal. EKG: Rate 66, sinus, normal axis, no signs of acute ischemia or infarct, no IVCD , AR 134, QTC 375. Patient was admitted to the hospital for prerenal azotemia, hypotension, fluid repletion. Hospital Course 61-year-old gentleman with history of COPD, hypertension, insomnia and depression recent hospitalization for COPD exacerbation, presented with 4 days of nausea and vomiting found to be hypotensive, have acute kidney injury, and low electrolytes. Admitted to observation for continued fluid replenishment, lectures slight replenishment, and symptom management. #. Acute nausea and vomiting, 4 days, present on admission, improved The absence of elevated white blood count, likely sources of exposure, most likely viral gastritis possible developing gastroenteritis Patient received antiemetics, IV saline, and regained his appetite. Ondansetron 4-8 mg every 4 hours as needed She was hydrated and treated with antiemetics and the symptoms resolved. #. Acute hypotension, present on admission, resolved. Urgent care blood pressure was in the 70s, in the 80s on presentation to the ER , after receiving fluid resuscitation is now in the low 100s He was fluid resuscitated and his blood pressure and volume depletion improved. #. Volume Depletion, present on admission, Acute kidney injury, present on admission, resolved. Serum creatinine 2.78, does not have history of chronic renal failure [place] to be prerenal in nature given 20.5 BUN to creatinine ratio, consistent with history of unable to keep down fluids He normalizes creatinine with IV fluids. Acute hypovolemic hyponatremia, present on admission, active and improving Sodium 133 on presentation He normalized his sodium was saline repletion. Acute headache, present on admission, resolved States he has had it for 1 day, frontal bilateral 650 acetaminophen now, no further workup in the hospital. Acute odynophagia, present on admission, active and improving 2 days of burning with swallowing any substance, may represent viral pharyngitis , or developing GERD. Trial of famotidine 20 mg twice a day These symptoms resolved with medical therapy. Chronic COPD, present on admission, stable Not in acute exacerbation Continue home medications of albuterol inhaler when necessary Continue duo nebs 4 times a day No evidence of decompensation. Chronic hypertension, present on admission, stable Hold home antihypertensives This remains stable. Chronic anxiety with depression, present on admission, active and stable Continue citalopram and trazodone from home Exam Vital Signs (Last) Date Time Temp Pulse Resp B/P Pulse Ox O2 Delivery O2 Flow Rate FiO2 10/10/16 12:09 84 16 98 Room Air 10/10/16 07:40 36.6 149/87 Exam Patient was seen and examined on the day of discharge Test 10/08/16 19:15 10/08/16 19:25 10/09/16 02:25 10/10/16 08:27 Troponin T < 0.010ug/L (0.0-0.011) Hold Purple Top Tube Received (Received) Hold Blue Top Tube Received (Received) Lactic Acid Level 1.5mmol/L (0.4-2.0) Hold Red Top Tube Received (Received) Hold [place] Top Tube Received (Received) White Blood Count 6.3th/mm3 (3.8-10.1) Red Blood Count 4.72mil/mm3 (4.40-5.80) Hemoglobin 13.1g/dL (13.8-17.2) Hematocrit 38.5% (41.0-50.0) Mean Corpuscular Volume 81.6fL (81-100) Mean Corpuscular Hemoglobin 27.8pg (27.0-35.0) Mean Corpuscular Hemoglobin Concent 34.0% (32.0-37.0) Red Cell Distribution Width 13.8% (12.3-15.4) Platelet Count 236bil/L (150-400) Neutrophils (%) (Auto) 90.1% (40-74) Lymphocytes (%) (Auto) 8.1% (14-46) Monocytes (%) (Auto) 1.3% (4-12) Eosinophils (%) (Auto) 0% (0-5) Basophils (%) (Auto) 0.2% (0-3) Magnesium Level 2.1mg/dL (1.6-2.6) Total Bilirubin 0.3mg/dL (0.0-1.2) Aspartate Amino Transf (AST/SGOT) 13U/L (0-50) Alanine Aminotransferase (ALT/SGPT) 34U/L (0-44) Alkaline Phosphatase 73U/L (25-160) Total Protein 5.1g/dL (6.4-8.4) Albumin 3.1g/dL (3.4-5.0) Sodium Level 139mEq/L (134-144) Potassium Level 4.5mEq/L (3.5-5.2) Chloride Level 106mEq/L (97-108) Carbon Dioxide Level 21mmol/L (18-29) Blood Urea Nitrogen 27mg/dL (6-24) Creatinine 1.27mg/dL (0.76-1.27) Estimat Glomerular Filtration Rate 62mL/min (>59) Glucose Level 85mg/dL (60-99) Calcium Level 8.6mg/dL (8.5-10.1) Discharge Medications Discharge Medications Amlodipine (Amlodipine) 5 Mg Tablet 5 MG PO DAILY Prescribed by: Orlin WEBB MD Atorvastatin Calcium (Atorvastatin Calcium) 20 Mg Tablet 20 MG PO HS Prescribed by: Orlin WEBB MD Chlorthalidone (Chlorthalidone) 25 Mg Tablet 25 MG PO DAILY Prescribed by: Orlin WEBB MD Citalopram (Citalopram) 20 Mg Tablet 20 MG PO DAILY Prescribed by: Orlin WEBB MD Fluticasone/Salmeterol (Advair Hfa 115-21 Mcg Inhaler) 12 Gm Hfa.aer.ad 2 PUFFS INH BID (Reported) Ipratropium/Albuterol Sulfate (Iprat-Albut 0.5-3(2.5) mg/3 mL Inhalant Soln) 3 Ml Ampul.neb 3 ML IH Q6 Prescribed by: Orlin WEBB MD Ipratropium/Albuterol Sulfate (Iprat-Albut 0.5-3(2.5) mg/3 mL Inhalant Soln) 3 Ml Ampul.neb 3 ML NEB QID Prescribed by: Orlin WEBB MD Lisinopril (Lisinopril) 10 Mg Tablet 10 MG PO DAILY Prescribed by: Orlin WEBB MD Prednisone (PredniSONE) 20 Mg Tablet 40 MG PO DAILY (Reported) Trazodone (Trazodone) 100 Mg Tablet 200 MG PO HS Prescribed by: Orlin WEBB MD As needed Albuterol Sulfate (Ventolin HFA Inhaler) 200 Puff/18 Gm Inhaler 2 PUFFS INH Q4- 6H PRN PRN For Shortness of Breath (Reported) Ibuprofen (Ibuprofen) 800 Mg Tablet 800 MG PO QID PRN PRN For Pain (Reported) diphenhydrAMINE HCl (Benadryl) 25 Mg Capsule 25 MG PO Q6H PRN PRN For Itching Prescribed by: Orlin WEBB MD Miscellaneous Medications ([Bp Med]) (Reported) Followup Plan Disposition: Home, resume home health with physical therapy, occupational therapy and nursing. Discharge Diet: No restrictions Discharge Activity: No restrictions Follow-up Provider: [facility] Follow-up with PCP in: 1 week Time spent 40 minutes Cb Alonso MD Oct 10, 2016 15:30
--- NOTE | 2016-10-10 17:16 | NUR ---
Social Work Note: Initial Assessment/Discharge Data& Assessment: Per MD in multidisciplinary rounds, pt is medically ready to discharge home via POV. Calin Ramirez is a 61 year old male admitted on 10/08/2016 for nausea and vomiting. Per pt is medically improved and ready to discharge home via POV with resume [facility]. CIVIL DESIGN TECHNICIAN met with pt at bedside to confirm discharge plan and assess for any unmet needs, CIVIL DESIGN TECHNICIAN role explained and discharge planning checklist packet provided. Pt lives with his nephew in [place] and is independent at baseline with all ADL's and no DME needs. Pt is open with [facility] and would like to resume these services. Per MD order, CIVIL DESIGN TECHNICIAN confirmed with Noemi with [facility] that they are able to resume services with pt and follow up with pt after discharge about their previous schedule. Pt does not have SNF hx and does not have LTC insurance or VA benefits. CIVIL DESIGN TECHNICIAN requested copy of pt DPOA/AD paperwork. Pt sister to transport pt home today. Pt denies any other needs. MD does not identify any concerns with pt capacity for self care. No other discharge needs or MD orders identified. Plan: Per pt is medically ready to discharge home via POV with resume [facility]. Pt denies any other needs. No other discharge needs or MD orders identified. TONYA Goodman Addendum: 10/10/16 at 1721 by BEN MURPHY Amended: Links added.
== END 2016-10-10 13:40 | disposition home health service (06) | DRG 683 ==
LOC: SED 19:08 → PCC 21:38 → OBSVTOIN 21:38 → PCC 22:35
PROVIDERS: ADMIT Internal Medicine; ATTEND Hospitalist
DX: N17.9 Acute kidney failure, unspecified (principal); E87.1 Hypo-osmolality and hyponatremia; K52.9 Noninfective gastroenteritis and colitis, unspecified; K29.70 Gastritis, unspecified, without bleeding; I10 Essential (primary) hypertension; E78.1 Pure hyperglyceridemia; E86.0 Dehydration; R51 Headache; F41.8 Other specified anxiety disorders; R13.10 Dysphagia, unspecified; Z79.51 Long term (current) use of inhaled steroids; J44.9 Chronic obstructive pulmonary disease, unspecified; F15.90 Other stimulant use, unspecified, uncomplicated